=== PATIENT | female | born 1955 | race Caucasian/White ===

== ENCOUNTER → 2020-09-21 10:27 | Outpatient (CLI) | payer OTHER, SELFPAY ==
--- NOTE | ~2020-09-21 | DEXA_ITS ---
Bone Density Report Name: Patricia Dangelo Age: 65 Sex: Female Ethnicity: White Date of : 1955 Indication: osteopenia; hysterectomy; postmenopausal Referring Provider: MONICA, ARTIE Study: Bone densitometry was performed. Exam Date: September 21, 2020 Accession number: [id number] Bone Density: Region BMD T-score Z-score Classification AP Spine (L2, L3, L4) 0.886 -1.8 0.0 Osteopenia Femoral Neck (Left) 0.639 -1.9 -0.5 Osteopenia Total Hip (Left) 0.740 -1.7 -0.5 Osteopenia Femoral Neck (Right) 0.597 -2.3 -0.8 Osteopenia Total Hip (Right) 0.759 -1.5 -0.4 Osteopenia Total Hip Mean 0.750 -1.6 -0.5 Osteopenia World Health Organization criteria for BMD impression classify patients as: Normal (T-score at or above -1.0), Osteopenia (T-score between -1.0 and -2.5), or Osteoporosis (T-score at or below -2.5). 10-year Fracture Risk(1): Major Osteoporotic Fracture 11% Hip Fracture 1.9% Reported Risk Factors: [place] (), Neck BMD=0.597, BMI=26.3 (1) FRAX(R) Version 3.08. Fracture probability calculated for an untreated patient. Fracture probability may be lower if the patient has received treatment. Previous Exams: Region Exam Age BMD T-score BMD Change BMD Change Date g/cm2 vs Baseline vs Previous AP Spine(L2, L3, L4) 09/21/2020 65 0.886 -1.8 -0.178* -0.056* 07/07/2017 62 0.942 -1.2 -0.123* -0.085* 09/29/2014 59 1.027 -0.5 -0.038* -0.038* 04/03/2011 55 1.065 -0.1 Total Hip(Left) 09/21/2020 65 0.740 -1.7 -0.160* -0.034* 07/07/2017 62 0.774 -1.4 -0.126* -0.112* 09/29/2014 59 0.887 -0.5 -0.013 -0.013 04/03/2011 55 0.900 -0.3 Total Hip(Right) 09/21/2020 65 0.759 -1.5 -0.146* -0.013 07/07/2017 62 0.772 -1.4 -0.133* -0.132* 09/29/2014 59 0.904 -0.3 -0.001 -0.001 04/03/2011 55 0.905 -0.3 *Denotes significance at 95% confidence level, LSC for AP Spine = 0.022 g/cm2, LSC for Total Hip = 0.027 g/cm2 Clinical Information Provided by Patient: Has used the following medications: Vitamin D, Calcium Has the following medical conditions: Hysterectomy Patient maximum height was 62 Menopause Age: 53 No regular weight bearing exercise Drinks caffeinated beverages Onset of menses at age 16 Number of children 0 Impression: The alessia
== END ==
PROVIDERS: PCP Family Medicine; Visit Provider Nurse Practitioner
DX: M85.88 Other specified disorders of bone density and structure, other site (principal); M85.852 Other specified disorders of bone density and structure, left thigh; M85.851 Other specified disorders of bone density and structure, right thigh
CPT/HCPCS: 77080

== ENCOUNTER 2022-01-03 14:04 | Emergency (ER) | payer OTHER, SELFPAY ==
--- NOTE | ~2022-01-03 | XR_ITS ---
EXAMINATION: XR foot LT min 3V DATE: 01/03/2022 14:25 INDICATION: Left foot injury. TECHNIQUE: 4 views of left foot were obtained. COMPARISON: None. FINDINGS: There is mild hallux valgus. No fracture. There is mild osteoarthritis of first metatarsoph alangeal joint and fifth proximal interphalangeal joint. There are enthesophytes at the posterior and plantar aspects of calcaneal tuberosity. IMPRESSION: 1. Mild hallux valgus. 2. Mild polyarticular osteoarthritis. Reviewed, dictated and finalized at location B.
--- NOTE | ~2022-01-03 | XR_ITS ---
EXAMINATION: XR ankle LT min 3V DATE: 01/03/2022 14:36 INDICATION: Left ankle injury. TECHNIQUE: 4 views of left ankle were obtained. COMPARISON: None. FINDINGS: Bone alignment is normal. No fracture. There are tiny calcifications adjacent to medial mal leolus. Joint spaces are normal. There are enthesophytes at the posterior and plantar aspects of calc aneal tuberosity. IMPRESSION: 1. No fracture. Reviewed, dictated and finalized at location B. IMPRESSION: 1. No fracture.
[2022-01-03 14:10] VITALS: BP 117/60; PULSE 69; RESP 18; TEMP 37; O2SAT 100
--- NOTE | 2022-01-03 14:28 | ED.LOWEXIN ---
HPI - Extremity Injury (Lower) General Chief Complaint: Extremity Injury, Lower Stated Complaint: Lt Foot and Leg Pain Time Seen by Provider: 01/03/22 14:20 History of Present Illness HPI Narrative: Patricia Dangelo is a 66-year-old female who comes to [facility] with complaints of left foot and ankle discomfort the foot pain on the dorsal surfaces from dropped a shampoo bottle on her foot a couple days ago, rates ;pain as 6, she also stubbed her left fifth toe today and she has a nonpainful lump on the medial side of her ankle Patient has been wearing shoes but she works a job where she stands on her feet 8 or 9 hours a day Plan: x-ray foot and ankle Related Data Home Medications Medication Instructions Recorded Confirmed gabapentin 300 mg capsule 300 mg PO BID 09/05/19 01/03/22 zolpidem 10 mg tablet 10 mg PO HS 01/03/22 01/03/22 Allergies Allergy/AdvReac Type Severity Reaction Status Date / Time metronidazole Allergy Intermediate Rash Verified 01/03/22 14:17 Sulfa (Sulfonamide Allergy Intermediate Rash Verified 01/03/22 14:17 Antibiotics) Review of Systems Review of Systems: CONSTITUTIONAL: Denies fever, chills, sweats. EYES: Denies visual changes, redness, discharge. ENT: Denies rhinorrhea, congestion, sore throat, otalgia. CARDIOVASCULAR: Denies chest pain, palpitations, edema. RESPIRATORY: Denies dyspnea, wheezing, cough GASTROINTESTINAL: Denies abdominal pain, nausea, vomiting, diarrhea. GENITOURINARY: Denies dysuria, hematuria, abnormal discharge SKIN: Denies rash or itching. NEUROLOGIC: Denies numbness, or focal weakness. PSYCHIATRIC: Denies anxiety or depression. Left foot no swelling of foot R toe; non descript lump in the left medial side of ankle PMFSH Past Medical History Medical History BRCA gene positive Breast cancer H/O malignant neoplasm of breast Hypercalcemia Insomnia Mixed hyperlipidemia Vertigo Vitamin deficiency, unspecified Surgical History Surgical History H/O mastectomy (~2014) H/O: hysterectomy Family History Family History Other Family history of coronary artery disease Social History Social History Tobacco type: cigarettes Second hand tobacco smoke exposure: No Smoking end date: 07/20/14 Alcohol intake: current Drinks per week: 4 Substance use: never Substance use type: does not use Spiritual care concerns: No Comments At time of signature, I agree with nursing past medical, surgical, social and family history. There is no relevant family history pertinent to the presenting complaint. Exam Narrative: GENERAL: This is a well-nourished, well-developed patient, in mild distress. HEAD: normocephalic, atraumatic. EYES: Sclera clear/white. Vision is grossly intact. EARS: External ears normal. Hearing grossly intact. NOSE: External nose normal without nasal discharge, nares without redness, no rhinorrhea. THROAT: Mucous membranes moist, NECK: Neck supple, non-tender CARDIOVASCULAR: Regular rate and rhythm without murmurs, gallops, or rubs. RESPIRATORY: Clear to auscultation. Breath sounds equal bilaterally. No wheezes, rales, or rhonchi. GASTROINTESTINAL:not done SKIN: warm, intact with no suspicious lesions or rash, good texture and turgor. NEURO: awake, alert, and oriented to person, place and time. There were no obvious focal neurologic abnormalities. Steady gait EXTREMITIES: Normal range of motion. Identifies tenderness mid dorsal metatarsal, left fifth toe appears nondisplaced, soft lesio (?lipoma or varicose vein) L medial ankle- mild edema, no pitting BACK: Nontender without deformity Course Course Emergency Course: Patient comes with foot and ankle pain from dropping an shampoo bottle onto her left foot, left fifth toe francis
== END 2022-01-03 15:00 | disposition home or self-care (01) ==
PROVIDERS: Emergency Provider Nurse Practitioner; PCP Family Medicine
DX: S99.922A Unspecified injury of left foot, initial encounter (principal); X58.XXXA Exposure to other specified factors, initial encounter; M25.472 Effusion, left ankle; Z87.891 Personal history of nicotine dependence; E78.2 Mixed hyperlipidemia; Z85.3 Personal history of malignant neoplasm of breast; Z90.10 Acquired absence of unspecified breast and nipple
CPT/HCPCS: 73610; 73630; 99213; G0463

== ENCOUNTER 2022-02-13 10:47 | Emergency (ER) | payer OTHER, SELFPAY ==
[2022-02-13 10:57] VITALS: BP 122/89; PULSE 71; RESP 18; TEMP 36.8; O2SAT 100
--- NOTE | 2022-02-13 11:03 | ED.URI ---
HPI - URI/Sore Throat General Chief Complaint: Upper Respiratory Infection Stated Complaint: sorethroat,cough History of Present Illness HPI Narrative: Patricia Dangelo is a 66 yo female with a PMH of chronic pain, high cholesterol, sleep difficulties, who [facility] complaining of sore throat and cough since Thursday or Thursday. 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 She is afebrile here but states she feels subjectively warm no nausea vomiting or diarrhea Patient reported to nurse faint positive on home test for COVID last night Patient has had COVID vaccines Related Data Home Medications Medication Instructions Recorded Confirmed gabapentin 300 mg capsule 300 mg PO BID 09/05/19 02/13/22 zolpidem 10 mg tablet 10 mg PO HS 01/03/22 02/13/22 Allergies Allergy/AdvReac Type Severity Reaction Status Date / Time metronidazole Allergy Intermediate Rash Verified 02/13/22 11:17 Sulfa (Sulfonamide Allergy Intermediate Rash Verified 02/13/22 11:17 Antibiotics) Review of Systems Review of Systems: CONSTITUTIONAL: Subjective fever, chills, sweats. EYES: Denies visual changes, redness, discharge. ENT: Denies rhinorrhea, congestion, sore throat, otalgia. CARDIOVASCULAR: Denies chest pain, palpitations, edema. RESPIRATORY: Denies dyspnea, wheezing, dry cough GASTROINTESTINAL: Denies abdominal pain, nausea, vomiting, diarrhea. GENITOURINARY: Denies dysuria, hematuria, abnormal discharge SKIN: Denies rash or itching. NEUROLOGIC: Denies numbness, or focal weakness. PSYCHIATRIC: Denies anxiety or depression. [facility] Past Medical History Medical History BRCA gene positive Breast cancer H/O malignant neoplasm of breast Hypercalcemia Insomnia Mixed hyperlipidemia Neuropathy Vertigo Vitamin deficiency, unspecified Surgical History Surgical History H/O mastectomy (~2014) H/O: hysterectomy Family History Family History Other Family history of coronary artery disease Social History Social History Tobacco type: cigarettes Second hand tobacco smoke exposure: No Smoking end date: 07/20/14 Alcohol intake: current Drinks per week: 4 Substance use: never Substance use type: does not use Spiritual care concerns: No Comments At time of signature, I agree with nursing past medical, surgical, social and family history. There is no relevant family history pertinent to the presenting complaint. Exam Narrative: GENERAL: This is a well-nourished, well-developed patient, in mild distress. HEAD: normocephalic, atraumatic. EYES: Sclera clear/white. Vision is grossly intact. EARS: External ears normal, auditory canals clear and without drainage, fluid behind TMs . Hearing grossly intact. NOSE: External nose normal without nasal discharge, nares without redness, no rhinorrhea. THROAT: Mucous membranes moist, posterior pharynx erythema NECK: Neck supple, non-tender CARDIOVASCULAR: Regular rate and rhythm without murmurs, gallops, or rubs. RESPIRATORY: Clear to auscultation. Breath sounds equal bilaterally. No wheezes, rales, or rhonchi. GASTROINTESTINAL: Not done SKIN: warm, intact with no suspicious lesions or rash, good texture and turgor. NEURO: awake, alert, and oriented to person, place and time. There were no obvious focal neurologic abnormalities. Steady gait EXTREMITIES: Normal range of motion. BACK: Nontender without deformity Course Course Emergency Course: Patient's had sore throat since Thursday night or Thursday morning his subjective fever states not feeling well has dry cough patient has been vaccinated against COVID; reports faint positive test on home COVID test last night Strep test- negative COVID test-rapid negative, will send PCR- recommend Omar
[2022-02-13 19:46] LABS: SARS-CoV-2 RNA PCR Positive
== END 2022-02-13 11:53 | disposition home or self-care (01) ==
PROVIDERS: Emergency Provider Nurse Practitioner; PCP Family Medicine
DX: Z20.822 Contact with and (suspected) exposure to COVID-19 (principal); E78.2 Mixed hyperlipidemia; Z85.3 Personal history of malignant neoplasm of breast; Z90.10 Acquired absence of unspecified breast and nipple; Z86.73 Personal history of transient ischemic attack (TIA), and cerebral infarction without residual deficits; G62.9 Polyneuropathy, unspecified
CPT/HCPCS: 87081; 87426; 87880; 99213; C9803; G0463; U0003; U0005

== ENCOUNTER 2022-12-12 14:34 | Emergency (ER) | payer OTHER, SELFPAY ==
--- NOTE | ~2022-12-12 | XR_ITS ---
XR tibia fibula LT 2V 12/12/2022 15:16 INDICATION: Left tibia/fibular pain. Status post fall. PROCEDURE: 2 views left tibia/fibula COMPARISON: 01/03/2022 FINDINGS: Fracture, dislocation or subluxation is not identified. The soft tissues appear within norm al limits. No foreign bodies are identified. IMPRESSION: 1: NO ACUTE BONE OR JOINT ABNORMALITY IDENTIFIED. Reviewed, dictated and finalized at location B.
[2022-12-12 14:44] VITALS: BP 121/50; PULSE 62; RESP 16; TEMP 36.6; O2SAT 99
[2022-12-12 14:51] VITALS: BP 121/50; PULSE 62; RESP 16; TEMP 36.6; O2SAT 99
--- NOTE | 2022-12-12 15:09 | ED.LOWEXIN ---
HPI - Extremity Injury (Lower) General Chief Complaint: Extremity Injury, Lower Stated Complaint: fall injury to right knee and down leg Time Seen by Provider: 12/12/22 15:04 Source: patient and RN notes reviewed Mode of arrival: ambulatory Limitations: no limitations History of Present Illness HPI Narrative: Patient presents today complaining of pain and swelling to her left lower leg. Patient fell 4 days ago on her leg causing significant bruising. 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 She rates her pain 2/10 at rest, which increases with weight-bearing and movement. She has been applying ice with some relief. Patient has neuropathy in her lower legs and feet, but no worse numbness and tingling than baseline. Related Data Home Medications Medication Instructions Recorded Confirmed gabapentin 300 mg capsule 300 mg PO BID 09/05/19 12/12/22 meclizine 25 mg tablet (Dramamine 25 mg PO BID PRN Dizziness Or 11/28/22 12/12/22 (meclizine)) Vertigo Allergies Allergy/AdvReac Type Severity Reaction Status Date / Time metronidazole Allergy Intermediate Rash Verified 12/12/22 14:50 Sulfa (Sulfonamide Allergy Intermediate Rash Verified 12/12/22 14:50 Antibiotics) Review of Systems Review of Systems: CONSTITUTIONAL: Denies body aches, fever, chills, or sweats. EYES: Denies visual changes, redness, or discharge. ENT: Denies rhinorrhea, congestion, sore throat, or otalgia. CARDIOVASCULAR: Denies chest pain, palpitations, or edema. RESPIRATORY: Denies cough or dyspnea. GASTROINTESTINAL: Denies abdominal pain, nausea, vomiting, or diarrhea. GENITOURINARY: Denies dysuria or hematuria. SKIN: Denies rash, itching, or wounds. MUSCULOSKELETAL: + left leg pain and injury NEUROLOGIC: Denies headache, numbness, tingling, or weakness. PSYCH: Denies depression or anxiety. [facility] Past Medical History Medical History BRCA gene positive Breast cancer H/O malignant neoplasm of breast Hypercalcemia Insomnia Mixed hyperlipidemia Neuropathy Suspected 2019-nCoV infection Vertigo Vitamin deficiency, unspecified Surgical History Surgical History H/O mastectomy (~2014) H/O: hysterectomy Family History Family History Other Family history of coronary artery disease Social History Social History Smoking status: Former smoker Tobacco type: cigarettes Second hand tobacco smoke exposure: No Smoking end date: 07/20/14 Alcohol intake: current Drinks per week: 4 Substance use: never Substance use type: does not use Lack of Transportation: No Lack of Food: Never True Current Housing: I Have Housing Concerned About Future Housing: No Difficulty Paying Gas/Electric Bills: No Difficulty Paying for Meds: No Currently Unemployed: No Education: High School Diploma/GED Difficulty w/ Childcare or Family Care: No Living arrangements: with family Gender identity (if verbalized by the patient): Female Spiritual care concerns: No Agree to blood products: Yes Comments At time of signature, I have reviewed and agree with nursing past medical, surgical, social and family history unless otherwise noted. Please see nursing chart for further information. There is no relevant family history pertinent to the presenting complaint Exam Narrative: GENERAL: Well-appearing, well-nourished, and in no acute distress. HEAD: Normocephalic, atraumatic. EYES: EOMI. No redness or drainage. Conjunctivae normal. ENT: Mucous membranes pink and moist. NECK: Normal AROM. CHEST: No respiratory distress. EXTREMITIES: Left lower leg: Significant healing hematoma and ecchymosis to the amin, most significant to
== END 2022-12-12 15:33 | disposition home or self-care (01) ==
PROVIDERS: Emergency Provider Nurse Practitioner; PCP Family Medicine
DX: S80.12XA Contusion of left lower leg, initial encounter (principal); W19.XXXA Unspecified fall, initial encounter; E78.2 Mixed hyperlipidemia; Z85.3 Personal history of malignant neoplasm of breast; Z90.10 Acquired absence of unspecified breast and nipple; Z87.891 Personal history of nicotine dependence
CPT/HCPCS: 73590; 99213; G0463

== ENCOUNTER → 2023-03-06 10:15 | Outpatient (CLI) | payer OTHER, SELFPAY ==
--- NOTE | ~2023-03-06 | DEXA_ITS ---
Bone Density Report Name: FIGUEROA MOON Age: 67 Sex: Female Ethnicity: White Date of : 1955 Indication: osteopenia; hysterectomy; postmenopausal Referring Provider: MONICA, ARTIE Study: Bone densitometry was performed. Exam Date: March 06, 2023 Accession number: [id number] Bone Density: Region BMD T-score Z-score Classification AP Spine (L1-L4) 0.908 -1.3 0.6 Osteopenia Femoral Neck (Left) 0.690 -1.4 0.1 Osteopenia Total Hip (Left) 0.783 -1.3 0.0 Osteopenia Femoral Neck (Right) 0.627 -2.0 -0.4 Osteopenia Total Hip (Right) 0.810 -1.1 0.2 Osteopenia Total Hip Mean 0.797 -1.2 0.1 Osteopenia World Health Organization criteria for BMD impression classify patients as: Normal (T-score at or above -1.0), Osteopenia (T-score between -1.0 and -2.5), or Osteoporosis (T-score at or below -2.5). 10-year Fracture Risk(1): Major Osteoporotic Fracture 11% Hip Fracture 1.5% Reported Risk Factors: [place] (), Neck BMD=0.627, BMI=26.8 (1) FRAX(R) Version 3.08. Fracture probability calculated for an untreated patient. Fracture probability may be lower if the patient has received treatment. Previous Exams: Region Exam Age BMD T-score BMD Change BMD Change Date g/cm2 vs Baseline vs Previous AP Spine(L1-L4) 03/06/2023 67 0.908 -1.3 -0.137* -0.019 07/07/2017 62 0.928 -1.1 -0.117* -0.076* 09/29/2014 59 1.003 -0.4 -0.042* -0.042* 04/03/2011 55 1.045 0.0 Total Hip(Left) 03/06/2023 67 0.783 -1.3 -0.118* 0.042* 09/21/2020 65 0.740 -1.7 -0.160* -0.034* 07/07/2017 62 0.774 -1.4 -0.126* -0.112* 09/29/2014 59 0.887 -0.5 -0.013 -0.013 04/03/2011 55 0.900 -0.3 Total Hip(Right) 03/06/2023 67 0.810 -1.1 -0.095* 0.050* 09/21/2020 65 0.759 -1.5 -0.146* -0.013 07/07/2017 62 0.772 -1.4 -0.133* -0.132* 09/29/2014 59 0.904 -0.3 -0.001 -0.001 04/03/2011 55 0.905 -0.3 *Denotes significance at 95% confidence level, LSC for AP Spine = 0.022 g/cm2, LSC for Total Hip = 0.027 g/cm2 Clinical Information Provided by Patient: Has used the following medications: Vitamin D, Calcium Has the following medical conditions: Hysterectomy, Hx of left breast ca with bilateral mastectomy with chemo -2014 Patient maximum height was 62.0 Menopause Age: 53 No regular weight bearing
== END ==
PROVIDERS: PCP Family Medicine; Visit Provider Nurse Practitioner
DX: Z78.0 Asymptomatic menopausal state (principal); M85.88 Other specified disorders of bone density and structure, other site; M85.852 Other specified disorders of bone density and structure, left thigh; M85.851 Other specified disorders of bone density and structure, right thigh
CPT/HCPCS: 77080

== ENCOUNTER 2023-07-09 17:25 | Emergency (ER) | payer OTHER, SELFPAY ==
[2023-07-09 17:58] VITALS: BP 137/63; PULSE 86; RESP 18; TEMP 36.3; O2SAT 97
--- NOTE | 2023-07-09 17:58 | ED.URI ---
HPI - URI/Sore Throat General Stated Complaint: sorethroat,cough,congestion Time Seen by Provider: 07/09/23 18:00 Source: patient Mode of arrival: ambulatory Limitations: no limitations History of Present Illness HPI Narrative: Patricia is a 68-year-old female patient presenting to the clinic today with complaints of sore throat, cough, nasal congestion, headache, body aches, chills x4 days. She does not know how high her fever has been as she has not checked it but has felt feverish MD elicited complaint: sore throat and nasal congestion Related Data Home Medications Medication Instructions Recorded Confirmed gabapentin 300 mg capsule 300 mg PO BID 09/05/19 07/09/23 Allergies Allergy/AdvReac Type Severity Reaction Status Date / Time metronidazole Allergy Intermediate Rash Verified 07/09/23 18:10 Sulfa (Sulfonamide Allergy Intermediate Rash Verified 07/09/23 18:10 Antibiotics) Review of Systems Review of Systems: Pertinent positives per HPI. Patient denies any rash, headache, visual changes, dizziness, shortness of breath, chest pain, palpitations, nausea, vomiting, diarrhea, constipation, abdominal pain, or any urinary issues. [facility] Past Medical History Medical History BRCA gene positive Breast cancer H/O malignant neoplasm of breast Hypercalcemia Insomnia Mixed hyperlipidemia Neuropathy Suspected 2019-nCoV infection Vertigo Vitamin deficiency, unspecified Surgical History Surgical History H/O mastectomy (~2014) H/O: hysterectomy Family History Family History Other Family history of coronary artery disease Social History Social History Smoking status: Former smoker Tobacco type: cigarettes Second hand tobacco smoke exposure: No Smoking end date: 07/20/14 Alcohol intake: current Drinks per week: 4 Substance use: never Substance use type: does not use Lack of Transportation: No Lack of Food: Never True Current Housing: I Have Housing Concerned About Future Housing: No Difficulty Paying Gas/Electric Bills: No Difficulty Paying for Meds: No Currently Unemployed: No Education: High School Diploma/GED Difficulty w/ Childcare or Family Care: No Living arrangements: with family Gender identity (if verbalized by the patient): Female Spiritual care concerns: No Agree to blood products: Yes Comments At the time of my signature, I reviewed and agree with the nursing past medical, surgical, social, and family history. There is no relevant family history pertinent to the patient complaint. Exam Narrative: General: Well-developed, well nourished, in no apparent distress Head: Normocephalic, atraumatic Eyes: Pupils equally round and reactive to light bilaterally, EOM intact, sclera and conjunctive clear, no discharge, lids normal Ears: TMs intact and congested, ear canals clear, no drainage, grossly hearing normal. Nose: Nares patent, clear nasal discharge, no inflammation, no sinus tenderness. Mouth: Oropharynx red without lesions or masses, good dentition, MMM. Neck: Supple, trachea midline, no enlargement of anterior or posterior cervical nodes, no thyroid masses or goiter palpable. Cardio: Regular rate and rhythm, s1 and s2 normal, no murmur appreciated. Resp: Clear to auscultation bilaterally anteriorly and posteriorly, no rhonchi, rales, wheezing or rubs Course Course Emergency Course: Portions of this record may have been created with voice recognition software. Level of Care: Express Care Visit Vital Signs Vital signs: Vital signs reviewed MDM - URI/Sore Throat MDM Narrative Medical decision making narrative: At the time of visit patient is resting comfortably on the exam table. Patient vivian
== END 2023-07-09 18:23 | disposition home or self-care (01) ==
PROVIDERS: Emergency Provider Nurse Practitioner Family; PCP Family Medicine
DX: B34.9 Viral infection, unspecified (principal); J06.9 Acute upper respiratory infection, unspecified; J02.9 Acute pharyngitis, unspecified; E78.2 Mixed hyperlipidemia; Z79.899 Other long term (current) drug therapy; Z85.3 Personal history of malignant neoplasm of breast; Z87.891 Personal history of nicotine dependence; Z20.822 Contact with and (suspected) exposure to COVID-19
CPT/HCPCS: 87081; 87426; 87804; 87880; 99213; C9803; G0463

== ENCOUNTER 2023-08-06 18:07 | Emergency (ER) | payer OTHER, SELFPAY ==
[2023-08-06 18:15] VITALS: BP 115/62; PULSE 63; RESP 18; TEMP 36.3; O2SAT 99
--- NOTE | 2023-08-06 18:23 | ED.DIZZY ---
HPI - Dizziness General Chief Complaint: Dizziness Stated Complaint: Dizzy, Nausea, Not Eating Time Seen by Provider: 08/06/23 18:08 Source: patient Mode of arrival: ambulatory Limitations: no limitations History of Present Illness HPI Narrative: Patient is a 68-year-old female who presents with sudden onset of dizziness and nausea today while working. Patient states dizziness has worsened throughout the day. Denies being related to movement or change in position. Patient is already on meclizine for vertigo after chemo in 2019. Patient denies any numbness, tingling, weakness to extremities or changes in vision. Patient denies any upper respiratory symptoms, fever, chills, vomiting or diarrhea. Related Data Home Medications Medication Instructions Recorded Confirmed gabapentin 300 mg capsule 300 mg PO BID 09/05/19 07/09/23 clobetasol 0.05 % topical cream topical 08/06/23 meclizine 12.5 mg tablet mg 08/06/23 Allergies Allergy/AdvReac Type Severity Reaction Status Date / Time metronidazole Allergy Intermediate Rash Verified 07/09/23 18:10 Sulfa (Sulfonamide Allergy Intermediate Rash Verified 07/09/23 18:10 Antibiotics) Review of Systems Review of Systems: All systems reviewed & are unremarkable except as noted in HPI and below Constitutional: Constitutional: Denies body ache(s), Denies chills, Denies fatigue, Denies fever(s), Denies headache(s), Denies malaise and Denies weakness Eyes: Eyes: Denies blurry vision, Denies irritation and Denies loss of vision ENT: Denies otalgia, Denies headache(s), Denies nasal discharge, Denies sinus pain and Denies sore throat Cardiovascular: Cardiovascular: Denies chest pain, Denies irregular heart rhythm and Denies dyspnea Respiratory: Respiratory: Denies dyspnea Gastrointestinal: Gastrointestinal: Denies abdominal pain, Denies melena, Denies hematochezia, Denies diarrhea, Reports nausea and Denies vomiting Musculoskeletal: Musculoskeletal: Denies back pain, Denies myalgias and Denies arthralgias Integumentary/Breasts: Skin/Breast: Denies pruritus and Denies rash Neurologic: Reports dizziness, Denies headache(s), Denies loss of vision and Denies weakness Psychiatric: Psychiatric: Reports no additional psychiatric complaints Endocrine: Endocrine: Denies fatigue PMFSH Past Medical History Medical History BRCA gene positive Breast cancer H/O malignant neoplasm of breast Hypercalcemia Insomnia Mixed hyperlipidemia Neuropathy Suspected 2019-nCoV infection Vertigo Vitamin deficiency, unspecified Surgical History Surgical History H/O mastectomy (~2015) H/O: hysterectomy Family History Family History Other Family history of coronary artery disease Social History Social History Smoking status: Former smoker Tobacco type: cigarettes Second hand tobacco smoke exposure: No Smoking end date: 07/20/14 Alcohol intake: current Drinks per week: 4 Substance use: never Substance use type: does not use Lack of Transportation: No Lack of Food: Never True Current Housing: I Have Housing Concerned About Future Housing: No Difficulty Paying Gas/Electric Bills: No Difficulty Paying for Meds: No Currently Unemployed: No Education: High School Diploma/GED Difficulty w/ Childcare or Family Care: No Living arrangements: with family Gender identity (if verbalized by the patient): Female Spiritual care concerns: No Agree to blood products: Yes Comments At time of signature, agree with nursing past medical, surgical, social and family history. There is no relevant family history pertinent to the presenting complaint. Exam Const: General: cooperative, healthy appearing, comfortable, no acute distress and well no
== END 2023-08-06 18:40 | disposition short-term general hospital (02) ==
LOC: EXPTROY 18:11
PROVIDERS: Emergency Provider Nurse Practitioner Family; PCP Family Medicine
DX: R42 Dizziness and giddiness (principal); Z87.891 Personal history of nicotine dependence; E78.2 Mixed hyperlipidemia; Z85.3 Personal history of malignant neoplasm of breast; Z90.10 Acquired absence of unspecified breast and nipple
CPT/HCPCS: 99213; G0463

== ENCOUNTER 2024-12-24 13:42 | Emergency (ER) | payer OTHER, SELFPAY ==
--- OUTSIDE RECORDS SUMMARY | 2024-12-24 13:44 | XMS_ITS | Encounter Summary ---
Author Organization [facility] Address [address] [place] [address] Phone Care Team Providers Care Water Taxi Driver Name Role Phone Aylin Perdomo MD Primary Care Provider [phone] Kirti Diaz NP Unavailable Parveen Jain MD Unavailable [phone] Tim Maldonado MD Unavailable Diogenes Cote MD Unavailable Encounter Details Date Type Department Care Team (Latest Contact Info) Description 01/21/2019 Orders Only [facility] Scanning, Provider Social History Tobacco Use Types Packs/Day Years Used Date Smoking Tobacco: Former Cigarettes 1 43.4 0 07/20/1971 - 12/06/2014 Smokeless Tobacco: Never Alcohol Use Standard Drinks/Week Comments Yes 0 (1 standard drink = 0.6 oz pur e alcohol) rarely Comments Unknown Sex and Gender Information Value Date Recorded Sex Assigned at Not on file 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 Gender Identity Not on file Sexual Orientation Not on file documented as of this encounter Plan of Treatment Not on file documented as of this encounter Procedures Procedure Name Priority Date/Time Associated Diagnosis Comments SCAN - LABS 01/21/2019 documented in this encounter Results * SCAN - LABS (01/21/2019) us Provider Scanning Final Result documented in this encounter Visit Diagnoses Not on filedocumented in this encounter Care Teams Water Taxi Driver Relationship Specialty Start Date End Date Aylin Perdomo MD PCP - General 09/05/16 Kirti Diaz NP Nurse Practitioner Medical Oncology 01/21/18 Parveen Jain MD [address] [place] [address] Referring Physician Plastic Surgery 01/21/18 Tim Maldonado MD [address] [place] [address] Consulting Physician Gynecologic Oncology 01/21/18 Diogenes Cote MD [address] [place] [address] Referring Physician Gastroenterology 01/22/18 documented as of this encounter
--- OUTSIDE RECORDS SUMMARY | 2024-12-24 13:44 | XMS_ITS | Referral Summary ---
Author Organization [facility] Address [address] [place] [address] Care Team Providers Care Process Mold Technician Name Role Phone Aylin Perdomo MD Primary Care Provider [phone] Kirti Diaz NP Unavailable [phone] Parveen Jain MD Unavailable [phone] Tim Maldonado MD Unavailable Diogenes Cote MD Unavailable Allergies Active Allergy Reactions Criticality Noted Date Comments Metronidazole Rash,Swelling Medium Sulfa (Sulfonamide Antibiotics) Rash Medium Medications simvastatin (ZOCOR) 40 mg tablet 12/04/2017 Active zolpidem (AMBIEN) 10 mg tabletIndicatio ns:Sleep-Onset Insomnia Take 1 tablet (10 mg total) by mouth nightly as needed for sleep Active polyethylene glycol (MIRALAX) 17 gram packet Take 1 packet (17 g total) by mouth daily Active clotrimazole-be tamethasone (LOTRISONE) cream 06/29/2018 Active clobetasol 0.025 % cream 06/23/2017 Activ e calcium carbonate/vitam in D3 (CALCIUM 500 + D ORAL) Take by mouth Active meclizine (ANTIVERT) 12.5 mg tablet Take 1 tablet (12.5 mg total) by mouth daily Active gabapentin (NEURONTIN) 600 mg tablet Take 1 tablet (600 mg total) by mouth 3 (three) times a day 135 tablet 3 09/12/2022 Active Active Problems Problem Noted Date Diagnosed Date Family history of pancreatic cancer 08/03/2020 Overview (08/03/2020): Added automatically from request for surgery [id number] Balance problem 02/04/2019 Smoking greater than 40 pack years 07/23/2018 Pulmonary nodules 06/05/2016 Overview (01/21/2018): 3 mm node in LLL in subpleural location. 03-16-2017 - imaging unchanged, subsequent imaging recommended. Assessment & Plan (07/23/2018 4:26 PM STAMP CLASSIFIER): CT 01/22/2018 with stable (3 mm) subpleural LLL nodule. Will enroll with lung screening program due to prior smoking history and will arrange for low dose CT scan in 6 months. Drug-induced polyneuropathy 07/03/2015 Assessment & Plan (07/22/2018 4:16 PM STAMP CLASSIFIER): On Neurontin: discussed increasing dose to 300 mg PO BID (currently taking 300 mg in AM) but she wants to hold off for now. S/P breast reconstruction 12/22/2014 Overview (07/22/2018): Bilateral nipple sparing mastectomies, with delayed wound healing on the right side at the inframammary fold incision. Reconstruction was salvaged with thoracodorsal artery accountant assistant flap. Assessment & Plan (07/22/2018 4:15 PM STAMP CLASSIFIER): Saw Dr. Jain 05/31/2018 BRCA2 gene mutation positive 11/09/2014 Overview (07/22/2018): BRCA2 mutation [id number] Assessment & Plan (07/22/2018 4:06 PM STAMP CLASSIFIER): s/p TAHBSO and followed by Dr. Cote from GI for monitoring for pancreatic cancer. MRI 04/26/2018 with normal impression. History of left breast cancer 11/03/2014 Assessment & Plan (07/22/2018 4:13 PM STAMP CLASSIFIER): Left sided invasive ductal carcinoma, [id number], stage IIA, triple negative, s/p left mastectomy and right prophylatic mastectomy followed by adjuvant AC followed by T, now on monitoring. She is doing well with no signs of recurrence. We reviewed exercise and nutrition recommendations. Resolved Problems Problem Noted Date Diagnosed Date Resolved Date History of colon polyps 05/08/202208/20 Overview (05/08/2022): Added automatically from request for surgery [id number] Immunizations Immunization Administration Dates Next Due ZOSTER Recombinant 01/08/2018,10/16/2017 Social History Tobacco Use Types Packs/Day Years Used Date Smoking Tobacco: Former Cigarettes 1 43.4 0 07/20/1971 - 12/06/2014 Smokeless Tobacco: Never Tobacco Cessation:Counseling Given: Yes Alcohol Use Standard Drinks/Week Comments Yes 0 (1 standard drink = 0.6 oz pur e alcohol) rarely AUDIT-C Answer Date Recorded Q1: How often do you have a drink containing alc ohol? 2-3 times a week 05/26/2024 Q2: How many drinks containi ng alcohol do you have on a typical day when you are drinking? 1 or 2 05/26/2024 Q3: How often do you have si x or more drinks on one occasion? Never 05/26/2024 Personal Safety Answer Date Recorded Have you ever been in or are you currently in a harmful physical or emotional relationship or is someone making you feel afraid or unsafe? 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 Gender Identity Not on file Sexual Orientation Not on file Last Filed Vital Signs Vital Sign Reading Time Taken Comments Blood Pressure 126/68 05/26/2024 11:50 AM STAMP CLASSIFIER Pulse 67 05/26/2024 11:50 AM STAMP CLASSIFIER Temperature 36.1 C (97 F) 05/26/2024 11:25 AM STAMP CLASSIFIER Respiratory Rate 22 05/26/2024 11:55 AM STAMP CLASSIFIER Oxygen Saturation 99% 05/26/2024 11:50 AM STAMP CLASSIFIER Inhaled Oxygen Concentration - - Weight 63.5 kg (140 lb) 05/26/2024 10:24 AM STAMP CLASSIFIER Height 157.5 cm (5' 2) 05/26/2024 10:24 AM STAMP CLASSIFIER Body Mass Index 25.61 05/26/2024 10:24 AM STAMP CLASSIFIER Plan of Treatment Not on file Procedures Procedure Name Priority Date/Time Associated Diagnosis Comments CT CHEST WO CONTRAST F/U LUNG SCREEN PROTOCOL Schedule Routine, Read Routine (OP Routine) 01/18/2024 10:04 AM CDT Pulmonary nodule COLONOSCOPY 08/07/2022 7:54 AM STAMP CLASSIFIER from Last 3 Months or Most Recently Relevant to Health Maintenance Results * CT Chest WO Contrast F/U Lung Screen Protocol (01/18/2024 10:04 AM CDT) Anatomical Region Laterality Modality Chest N/A Computed Tomogra phy 01/18/2024 11:0 3 AM CDT Impressions 01/18/2024 11:05 AM CDT LungRADS Category 2 (benign). Recommend Low dose Screening CT of chest in 12 months. LungRADS Categories: 1 - Negative (no nodules, or only benign calcified or fat-containing nodules) 2 - Benign Appearance or Behavior (nodules with very low likelihood of becoming a clinically active cancer due to size or lack of growth) 3 - Probably Benign (probably benign findings-short term follow up suggested; includes nodules with a low likelihood of becoming a clinically active cancer) 4A,4B,4X - Suspicious (category 3 or 4 nodules with findings for which additional diagnostic testing and/or tissue sampling is recommended) S - Other (clinically significant or potentially clinically significant findings (non-lung cancer) C - Prior Lung Cancer (modifier for patients with a prior diagnosis of lung cancer who return to screening) Dictated by: Khadar Colbert M.D. The radiology attending physician has personally reviewed this study, and had reviewed and/or edited this written report and agrees with it. Electronically signed by: Shiva Goetz M.D. Narrative 01/18/2024 11:05 AM CDT EXAMINATION: Lung cancer screening CT of the Chest without intravenous contrast HISTORY: Lung Cancer Screening TECHNIQUE: Low radiation dose chest protocol. No intravenous contrast. Reconstructed slice width 1.[address] Dose Index 0.73 mGy. Dose-length product 29 mGy-cm. COMPARISON: 01/19/[address] of the chest without IV contrast FINDINGS: Lung nodules or findings of lung cancer: Right middle lobe nodule measuring 4 mm without change at 203.6. Smoking related lung disease: Mild apical centrilobular emphysema Other findings: None Procedure Note Shiva Goetz MD - 01/18/2024 EXAMINATION: Lung cancer screening CT of the Chest without intravenous contrast HISTORY: Lung Cancer Screening TECHNIQUE: Low radiation dose chest protocol. No intravenous contrast. Reconstructed slice width 1.[address] Dose Index 0.73 mGy. Dose-length product 29 mGy-cm. COMPARISON: 01/19/[address] of the chest without IV contrast FINDINGS: Lung nodules or findings of lung cancer: Right middle lobe nodule measuring 4 mm without change at 203.6. Smoking related lung disease: Mild apical centrilobular emphysema Other findings: None IMPRESSION: LungRADS Category 2 (benign). Recommend Low dose Screening CT of chest in 12 months. LungRADS Categories: 1 - Negative (no nodules, or only benign calcified or fat-containing nodules) 2 - Benign Appearance or Behavior (nodules with very low likelihood of becoming a clinically active cancer due to size or lack of growth) 3 - Probably Benign (probably benign findings-short term follow up suggested; includes nodules with a low likelihood of becoming a clinically active cancer) 4A,4B,4X - Suspicious (category 3 or 4 nodules with findings for which additional diagnostic testing and/or tissue sampling is recommended) S - Other (clinically significant or potentially clinically significant findings (non-lung cancer) C - Prior Lung Cancer (modifier for patients with a prior diagnosis of lung cancer who return to screening) Dictated by: Khadar Colbert M.D. The radiology attending physician has personally reviewed this study, and had reviewed and/or edited this written report and agrees with it. Electronically signed by: Shiva Goetz M.D. Renea Victor NP IMG CT PROCEDURES Final Result * COLONOSCOPY (08/07/2022 7:54 AM STAMP CLASSIFIER) Anatomical Region Laterality Modality Other Narrative Procedure Note Diogenes Cote MD - 08/07/2022 7:54 AM CST ENDOSCOPY LAB Patient Name: Patricia Dangelo Procedure Date: 08/07/2022 7:54 AM Date of : 1955 Admit Type: Outpatient Age: 67 Gender: Female Attending MD: Diogenes Cote M.D. Room: [facility] 04 Note Status: Finalized Procedure: Colonoscopy Indications: Surveillance: Personal history of adenomatouspolyps on last colonoscopy > 5 years ago Providers: Diogenes Cote M.D. Referring MD: Aylin Perdomo M.D. Medicines: Monitored Anesthesia Care Complications: No immediate complications. Estimated blood loss:None. Estimated Blood Loss: Estimated blood loss: none. Procedure: Pre-Anesthesia Assessment: - The risks and benefits of the procedure and the sedation options and risks were discussed with the patient. All questions were answered and informed consent was obtained. - Immediately prior to administration ofmedications, the patient was re-assessed for adequacy to receive sedatives. - The anesthesia plan was to use monitoredanesthesia care (MAC). The benefits, risks and alternatives of theprocedure and sedation were discussed and informed consentwas obtained. All questions were answered. Please referto the signed informed consent document in the medical record. The scope was passed under direct vision.The [id number] was introduced through the anusand advanced to the cecum, identified by appendiceal orifice and ileocecal valve. The colonoscopy was performed without difficulty. The patient tolerated the procedure well. The quality of the bowel preparation was evaluated using the BBPS (BostonBowel Preparation Scale) with scores of: Right Colon = 3 (entire mucosa seen well with no residual staining, small fragments of stool or opaque liquid),Transverse Colon = 3 (entire mucosa seen well with no residual staining, small fragments of stool or opaqueliquid) and Left Colon = 2 (minor amount of residualstaining, small fragments of stool and/or opaque liquid, but mucosa seen well). The total BBPS score equals 8.The quality of the bowel preparation was good. Findings: The perianal and digital rectal examinations were normal. The colon (entire examined portion) appeared normal. Multiple small and large-mouthed diverticula were found in thesigmoid colon. The rectum was shallow and did not allow for retroflexion on several attempts. The anal verge and rectum were examined en fosseveral times. Impression: - The entire examined colon is normal. - Diverticulosis in the sigmoid colon. Recommendation: - Observe patient's clinical course followingtoday's Colonoscopy. - Repeat colonoscopy in 7-10 years. Patient will require a 2 day bowel prep. - Resume home medications and diet. - Return to primary care physician as previously scheduled. - In the unusual situation that you developabdominal pain, bleeding or other significant problems in the days following this procedure please call my officeat [phone] to speak to my nurses. After hours and evenings please call [phone] andspeak to the GI fellow radiologic electronic specialist. Please tell them that Dr. Cote did your procedure and that your wereinstructed to have the fellow call me or the physiciancovering for me to discuss the management of your condition.If you have an urgent problem, [facility] and have the ER doctor call fiona during the day or the GI Fellow after hours and weekends to arrange admission or transfer to our facility. Attending Participation: I personally performed the entire procedure. Electronically Signed By: Diogenes Cote M.D. Diogenes Cote M.D. 08/07/2022 8:30:19 AM Number of Addenda: 0 Note Initiated On: 08/07/2022 7:54 AM Diogenes Cote MD ENDOSCOPY PROCEDURES Final Result from Last 3 Months or Most Recently Relevant to Health Maintenance Insurance [facility] Address: [address] [address] [place] [address] [facility] [facility] H[facility]/PPO Address: [address] [address] [place] [address] [facility]/PPO Address: [address] [address] [place] [address] [facility] MEDIC[facility] Advance Directives For more information, please contact: [phone] * Full Code (Latest Code Status on File) Date Activated Date Inactivated Comments 05/26/2024 10:20 AM 05/26/2024 4:03 PM * Full Code Date Activated Date Inactivated Comments 08/07/2022 6:57 AM 08/07/2022 1:18 PM * Full Code Date Activated Date Inactivated Comments 06/05/2022 8:04 AM 06/05/2022 3:23 PM * Full Code Date Activated Date Inactivated Comments 08/31/2020 7:56 AM 08/31/2020 3:20 PM Care Teams Process Mold Technician Relationship Specialty Start Date End Date Aylin Perdomo MD PCP - General 09/05/16 Kirti Diaz, PAUL Nurse Practitioner Medical Oncology 01/21/18 Parveen Jain MD [address] [place] [address] Referring Physician Plastic Surgery 01/21/18 Tim Maldonado MD [address] [place] [address] Consulting Physician Gynecologic Oncology 01/21/18 Diogenes Cote MD [address] [place] [address] Referring Physician Gastroenterology 01/22/18
--- OUTSIDE RECORDS SUMMARY | 2024-12-24 13:44 | XMS_ITS | Clinical Summary ---
Author Organization [facility] Address [address] [place] [address] Care Team Providers Care Private Branch Exchange Service Adviser Name Role Phone Aylin Perdomo MD Primary Care Provider [phone] Kirti Diaz NP Unavailable Parveen Jain MD Unavailable [phone] Tim Maldonado MD Unavailable Diogenes Cote MD [...] (08/03/2020): Added automatically from request for surgery [id number] Balance problem 02/04/2019 Smoking greater than 40 pack years 07/23/2018 Pulmonary nodules 06/05/2016 Overview (01/21/2018): 3 mm node in LLL in subpleural location. 03-16-2017 - imaging unchanged, subsequent imaging recommended. Assessment & Plan (07/23/2018 4:26 PM COOLER ROOM WORKER): CT 01/22/2018 with stable (3 mm) subpleural LLL nodule. Will enroll with lung screening program due to prior smoking history and will arrange for low dose CT scan in 6 months. Drug-induced polyneuropathy 07/03/2015 Assessment & Plan (07/22/2018 4:16 PM COOLER ROOM WORKER): On Neurontin: discussed increasing dose to 300 mg PO BID (currently taking 300 mg in AM) but she wants to hold off for now. S/P breast reconstruction 12/22/2014 Overview (07/22/2018): Bilateral nipple sparing mastectomies, with delayed wound healing on the right side at the inframammary fold incision. Reconstruction was salvaged with thoracodorsal artery recreation coordinator flap. Assessment & Plan (07/22/2018 4:15 PM COOLER ROOM WORKER): Saw Dr. Jain 05/31/2018 BRCA2 gene mutation positive 11/09/2014 Overview (07/22/2018): BRCA2 mutation 2041A Assessment & Plan (07/22/2018 4:06 PM COOLER ROOM WORKER): s/p TAHBSO and followed by Dr. Cote from GI for monitoring for pancreatic cancer. MRI 04/26/2018 with normal impression. History of left breast cancer 11/03/2014 Assessment & Plan (07/22/2018 4:13 PM COOLER ROOM WORKER): Left sided invasive ductal carcinoma, [id number], stage IIA, triple negative, s/p left mastectomy and right prophylatic mastectomy followed by adjuvant AC followed by T, now on monitoring. She is doing well with no signs of recurrence. We reviewed exercise and nutrition recommendations. Resolved Problems Problem Noted Date Diagnosed Date Resolved Date History of colon polyps 05/08/202208/20 Overview (05/08/2022): Added automatically from request for surgery [id number] Immunizations Immunization Administration Dates Next Due ZOSTER Recombinant 01/08/2018,10/16/2017 Surgical History Surgery Date Site/Laterality Comments PORT REMOVAL 06/19/2015 N/A US UNLISTED PROCEDURE LYMPH SYSTEM 12/14/2014 N/A HYSTERECTOMY W/ BILATERAL SALPINGOOPHORECTOMY 02/01/2016 COLON POLYPECTOMY 03/20/2017 BREAST RECONSTRUCTION 07/20/2014 - 07/19/2015 Bilateral MASTECTOMY 07/20/2014 - 07/19/2015 Bilateral SKIN CANCER EXCISION COLONOSCOPY 08/07/2022 Medical History Medical History Date Comments Hyperlipidemia Breast cancer, left (HCC) 2014 s/p ch emotherapy Skin cancer History of colon polyps 05/08/2022 Added au tomatically from request for surgery [id number] Lung nodule Family History Medical History Relation Name Comments Car Accident Father Heart attack Father Hyperlipidemia Father Family histor y of hypercholesterolemia - (Added by TW Conv) Heart attack Father's Brother Family hist ory of myocardial infarction - (Added by TW Conv) Skin cancer Maternal Grandfather fr om skin cancer Emphysema Maternal Grandmother Car Accident Mother at age 33 years Lung cancer Mother's Brother smoker Cancer Mother's Sister CHIEF BANK EXAMINER cancer a nd smoker Stroke Paternal Grandmother No Known Problems Sister Relation Name Status Comments Father Father's Brother Maternal Grandfather Maternal Grandmother Mother Mother's Brother Mother's Sister Paternal Grandfather Paternal Grandmother Sister Alive Social History Tobacco Use Types Packs/Day Years [...] on file Legal Sex Female 9:07 PM COOLER ROOM WORKER Gender Identity Not on file Sexual Orientation Not on file Obstetrics History Last Filed Vital Signs Vital Sign Reading Time Taken Comments Blood Pressure 126/68 05/26/2024 11:50 AM COOLER ROOM WORKER Pulse 67 05/26/2024 11:50 AM COOLER ROOM WORKER Temperature 36.1 C (97 F) 05/26/2024 11:25 AM COOLER ROOM WORKER Respiratory Rate 22 05/26/2024 11:55 AM COOLER ROOM WORKER Oxygen Saturation 99% 05/26/2024 11:50 AM COOLER ROOM WORKER Inhaled Oxygen Concentration - - Weight 63.5 kg (140 lb) 05/26/2024 10:24 AM COOLER ROOM WORKER Height 157.5 cm (5' 2) 05/26/2024 10:24 AM COOLER ROOM WORKER Body Mass Index 25.61 05/26/2024 10:24 AM COOLER ROOM WORKER Plan of Treatment Health Maintenance Due Date Last Done Comments Breast Cancer Screening-Mammogram 1955 Depression Screening 1955 Hepatitis C Screening 1955 Osteoporosis Screening-Bone Density Scan 1955 DTaP/Tdap/Td Vaccine (1 - Tdap) 1968 Hepatitis B Screening 1975 Pneumococcal vaccine 65+ (1 of 2 - PCV) 1976 Well Visit 65+ 2022 Covid-19 Vaccine (4 - 2023-2 5 season) 2024 06/06/2021, 10/01/2020, 09/02/2020 Lung Cancer Screening 01/18/2025 01/18/2024 , 01/19/2023, 12/06/2021, Additional history exists Influenza Vaccine (Season Ended) 2025 Fall Risk Assessment 05/26/2025 05/26/2024 Colon Cancer Screening-Colonoscopy 08/07/2032 08/07/2022, 06/05/2022, 03/20/2017 Zoster Vaccine Completed 01/08/2018, 10/16/2017 Colon Cancer Screening-CT Colonography Discontinued 08/07/2022, 06/05/2022, 03/20/2017 Colon Cancer Screening-DNA Stool Discontinued 08/07/2022, 06/05/2022, 03/20/2017 Colon Cancer Screening-FIT Discontinued 08/07, 06/05/2022, 03/20/2017 Colon Cancer Screening-Sigmoidoscopy Discontinued 08/07/2022, 06/05/2022, 03/20/2017 Procedures Procedure Name Priority Date/Time Associated Diagnosis Comments CT CHEST WO CONTRAST F/U LUNG SCREEN PROTOCOL Schedule Routine, Read Routine (OP Routine) 01/18/2024 10:04 AM CDT Pulmonary nodule COLONOSCOPY 08/07/2022 7:54 AM COOLER ROOM WORKER from Last 3 Months or Most Recently [...] who return to screening) Dictated by: Khadar Naveh-Fred, M.D. The radiology attending physician has personally [...] it. Electronically signed by: Shiva Goetz M.D. us Reneajaspal Victor FINANCE ATTORNEY IMG CT PROCEDURES Final Result * COLONOSCOPY (08/07/2022 7:54 AM COOLER ROOM WORKER) Anatomical Region Laterality Modality Other Narrative Procedure Note Diogenes Cote MD - 08/07/2022 7:54 AM CST ENDOSCOPY LAB Patient Name: Patricia Dangelo Procedure Date: 08/07/2022 7:54 AM Date of : 1955 Admit Type: Outpatient Age: 67 Gender: Female Attending MD: Diogenes Cote M.D. Room: [facility] ENDOSCOPY ROOM 04 Note Status: Finalized Procedure: [...] The scope was passed under direct vision.The [id number] was introduced through the anusand advanced to [...] following this procedure please call my officeat [phone] to speak to my nurses. After hours and evenings please call [phone] andspeak to the GI fellow logistics solution manager. Please tell them that Dr. Cote did your procedure and that your wereinstructed to have the fellow call me or the physiciancovering for me to discuss the management of your condition.If you have an urgent problem, [facility] and have the ER doctor call laithffice during the day or the GI Fellow [...] Most Recently Relevant to Health Maintenance Insurance [facility] CHOICE PLUS [address] [place] [address] [facility] [place] [id number] MEDICARE Advance Directives For more information, please contact: [phone] * Full Code (Latest Code Status on File) Date Activated Date Inactivated Comments 05/26/2024 10:20 AM 05/26/2024 4:03 PM * Full Code Date Activated Date Inactivated Comments 08/07/2022 6:57 AM 08/07/2022 1:18 PM * Full Code Date Activated Date Inactivated Comments 06/05/2022 8:04 AM 06/05/2022 3:23 PM * Full Code Date Activated Date Inactivated Comments 08/31/2020 7:56 AM 08/31/2020 3:20 PM Care Teams Private Branch Exchange Service Adviser Relationship Specialty Start Date End Date Aylin Perdomo MD PCP - General 09/05/16 Kirti Diaz NP Nurse Practitioner Medical Oncology 01/21/18 Parveen Jain MD [address] [place] [address] Referring Physician Plastic Surgery 01/21/18 Tim Maldonado MD [address] [place] [address] Consulting Physician Gynecologic Oncology 01/21/18 Diogenes Cote MD [address] [place] [address] Referring Physician Gastroenterology 01/22/18
--- NOTE | 2024-12-24 13:47 | ED.GENADULT ---
HPI - General Adult General Chief complaint: Upper Respiratory Infection Stated complaint: sore throat Time Seen by Provider: 12/24/24 13:47 Source: patient Mode of arrival: ambulatory Limitations: no limitations History of Present Illness HPI narrative: 69-year-old female patient presents to the [facility] with complaints of sore throat for the past 5 days. Denies fevers body aches or chills. Denies any ear pain or coughing. Denies chest pain or shortness of breath. Denies abdominal pain, nausea, vomiting or diarrhea. Denies taking anything for the pain. Related Data Home Medications ?Medication ?Instructions ?Recorded ?Confirmed ?Last Taken ?Type clobetasol 0.05 % topical cream topical 08/06/23 06/27/24 Unknown History meclizine 12.5 mg tablet mg 08/06/23 06/27/24 Unknown History Allergies Allergy/AdvReac Type Severity Reaction Status Date / Time metronidazole Allergy Intermediate Rash Verified 12/24/24 13:49 Sulfa (Sulfonamide Allergy Intermediate Rash Verified 12/24/24 13:49 Antibiotics) Review of Systems Review of Systems: CONSTITUTIONAL: Denies fever, chills, or sweats. EYES: Denies visual changes, redness, or discharge. ENT: Denies rhinorrhea, congestion, Positive sore throat, denies otalgia. CARDIOVASCULAR: Denies chest pain, palpitations, or edema. RESPIRATORY: Denies cough or dyspnea. GASTROINTESTINAL: Denies abdominal pain, nausea, vomiting, or diarrhea. GENITOURINARY: Denies dysuria or hematuria. SKIN: Denies rash or itching. MUSCULOSKELETAL: Denies back pain, joint pain, or myalgia. NEUROLOGIC: Denies headache, numbness, or weakness. PSYCHIATRIC: Denies anxiety or depression. [facility] Past Medical History Medical History Suspected 2019-nCoV infection Neuropathy Vertigo BRCA gene positive Breast cancer Insomnia H/O malignant neoplasm of breast Hypercalcemia Mixed hyperlipidemia Vitamin deficiency, unspecified Surgical History Surgical History H/O: hysterectomy H/O mastectomy (~2014) Family History Family History Other Family history of coronary artery disease Social History Social History Smoking status: Former smoker Tobacco type: cigarettes Second hand tobacco smoke exposure: No Smoking end date: 07/20/14 Alcohol intake: current Drinks per week: 4 Substance use: never Substance use type: does not use Lack of Transportation: No Lack of Food: Never True Current Housing: I Have Housing Concerned About Future Housing: No Difficulty Paying Gas/Electric Bills: No Difficulty Paying for Meds: No Currently Unemployed: No Education: High School Diploma/GED Difficulty w/ Childcare or Family Care: No Living arrangements: with family Gender identity (if verbalized by the patient): Female Spiritual care concerns: No Agree to blood products: Yes Comments At the time of my signature I agree with nursing past medical history, surgical, social, and family history. There is no relevant family history pertinent to the presenting complaint. Exam Narrative: GENERAL: Well-appearing, well-nourished, and in no acute distress. HEAD: Normocephalic, atraumatic. EYES: PERRLA and EOMI. ENT: Nares clear, no rhinorrhea or epistaxis. Mucous membranes moist. posterior pharynx with slight erythema but no tonsillar enlargement, no exudates or lesions present. Bilateral TMs are clear with no erythema or foreign bodies the canal. NECK: Supple. No lymphadenopathy CHEST: Clear to auscultation. No respiratory distress. HEART: Regular rate and rhythm. No murmur heard. Normal peripheral pulses. ABDOMEN: Soft, nontender, nondistended, normal active bowel sounds. EXTREMITIES: Normal range of motion. No edema. SKIN: Warm, dry, no rash. NEURO: No focal deficits. Alert and oriented x3. Course Course Level of Care: Express Care Visit Vital Signs Vital signs: Vital Signs Temperature 36.2 C L 12/24/24 13:52 Pulse Rate 79 12/24/24 13:52 Respiratory Rate 16 12/24/24 13:52 Blood Pressure 103/56 L 12/24/24 13:52 Pulse Oximetry 98 12/24/24 13:52 Oxygen Delivery Room Air 12/24/24 13:52 Temperature 36.2 C L 12/24/24 13:52 Pulse Rate 79 12/24/24 13:52 Respiratory Rate 16 12/24/24 13:52 Blood Pressure 103/56 L 12/24/24 13:52 Pulse Oximetry 98 12/24/24 13:52 Oxygen Delivery Room Air 12/24/24 13:52 Vital signs reviewed. Medical Decision Making MDM Narrative Medical decision making narrative: Discussed with patient she has tested positive on point of care testing for strep today. We will discharge her home with oral antibiotics for the strep infection. Discussed with patient that if she continues to have worsening symptoms she can either come back here for re-evaluation or follow up with her primary doctor. Patient verbalized understanding denies any other questions or concerns at this time. Differential Diagnosis Differential Diagnosis: Differential diagnosis: Viral pharyngitis, pharyngitis, group A strep, infectious mononucleosis, gonococcal pharyngitis, exudative pharyngitis, oral candidiasis. Chronic allergies, postnasal drip, GERD, abscess formation, but glottitis, retropharyngeal abscess formation, or airway obstruction. Vital Signs Vital Signs: Vital Signs Temperature 36.2 C L 12/24/24 13:52 Pulse Rate 79 12/24/24 13:52 Respiratory Rate 16 12/24/24 13:52 Blood Pressure 103/56 L 12/24/24 13:52 Pulse Oximetry 98 12/24/24 13:52 Oxygen Delivery Room Air 12/24/24 13:52 Temperature 36.2 C L 12/24/24 13:52 Pulse Rate 79 12/24/24 13:52 Respiratory Rate 16 12/24/24 13:52 Blood Pressure 103/56 L 12/24/24 13:52 Pulse Oximetry 98 12/24/24 13:52 Oxygen Delivery Room Air 12/24/24 13:52 Lab Data Labs: Lab Results 12/24/24 Range/Units 14:01 POC Grp A Strep Screen Positive (Negative) Critical Care Time Critical Care Time Critical Care Time: No Discharge Plan Discharge Clinical Impression: Strep pharyngitis Patient Disposition: Home Condition: Stable Instructions: Antibiotic Form, Strep Throat (ED) Additional Instructions: -Take the medication as prescribed. Throw away the toothbrush after 24hours of antibiotic. -Eat things that are easy to swallow, like tea or soup, or popsicles to suck on. You might not feel like eating or drinking, but it's important that you get enough liquids. -Oral rinses such as: Salt water gargles and/or may use topical anesthetic (eg. Chloraseptic spray) or lozenges to relieve dryness or throat pain). -Take Tylenol and ibuprofen as needed for pain and fever as directed. -Frequent hand washing or hand business department chair is one of the best ways to prevent spread of infection. -Follow up with primary care provider in 2-3 days if condition is not improving or seek ER visit if you start breathing fast/has trouble breathing, is not drinking enough fluids, muffle voice, difficulty opening the mouth. Patient Language: [place] Islander Prescriptions: New amoxicillin 500 mg capsule 500 mg PO Q12H 10 Days Qty: 20 0RF No Action clobetasol 0.05 % cream TOPICAL meclizine 12.5 mg tablet simvastatin 40 mg tablet 40 mg PO DAILY Qty: 90 2RF gabapentin 600 mg tablet 300 mg PO BID Qty: 90 1RF zolpidem 10 mg tablet 10 mg PO HS Qty: 90 0RF Follow-up/Referrals: Aylin Perdomo MD [Primary Care Provider] - Time of Disposition: 14:07
[2024-12-24 13:52] VITALS: BP 103/56; PULSE 79; RESP 16; TEMP 36.2; O2SAT 98
[2024-12-24 14:04] LABS: EDSTREPNEGPOS1 Positive (Negative)
== END 2024-12-24 14:10 | disposition home or self-care (01) ==
PROVIDERS: Emergency Provider Nurse Practitioner Family; PCP Family Medicine
DX: J02.0 Streptococcal pharyngitis (principal); E78.2 Mixed hyperlipidemia; G62.9 Polyneuropathy, unspecified; Z87.891 Personal history of nicotine dependence; Z85.3 Personal history of malignant neoplasm of breast; Z90.10 Acquired absence of unspecified breast and nipple
CPT/HCPCS: 87880; 99213; G0463

== ENCOUNTER 2025-03-11 13:57 | Emergency (ER) | payer OTHER, SELFPAY ==
--- NOTE | ~2025-03-11 | XR_ITS ---
XR foot LT min 3V 03/11/2025 14:13 INDICATION: Left foot swelling and pain PROCEDURE: 4 views left foot COMPARISON: 01/03/2022 FINDINGS: Fracture, dislocation or subluxation is not identified. The soft tissues appear within normal limits. No foreign bodies are identified. IMPRESSION: 1: NO ACUTE BONE OR JOINT ABNORMALITY IDENTIFIED. Reviewed, dictated and finalized at location O.
--- NOTE | 2025-03-11 13:58 | ED.LOWEXIN ---
HPI - Extremity Injury (Lower) General Chief Complaint: Extremity Problem,Nontraumatic Stated Complaint: LT Foot Pain Time Seen by Provider: 03/11/25 13:57 Source: patient Mode of arrival: ambulatory Limitations: no limitations History of Present Illness HPI Narrative: Patricia is a 69 year old female patient presenting to the clinic today with c/o left foot pain. She reports pain and swelling to the top of her left dorsal foot. No known injury. 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 Noticed the swelling when she got home from work today and took her shoe off. Has a history neuropathy. No diabetes. States that there is some sharp shooting pain at times. Currently rates the pain 09/26. Has not taken any medications for her symptoms. Related Data Home Medications ?Medication ?Instructions ?Recorded ?Confirmed ?Last Taken ?Type clobetasol 0.05 % topical cream topical 08/06/23 03/06/25 Unknown History meclizine 12.5 mg tablet mg 08/06/23 03/06/25 Unknown History Allergies Allergy/AdvReac Type Severity Reaction Status Date / Time metronidazole Allergy Intermediate Rash Verified 03/11/25 14:00 Sulfa (Sulfonamide Allergy Intermediate Rash Verified 03/11/25 14:00 Antibiotics) Review of Systems Review of Systems: Pertinent positives per HPI. Patient denies any fever, chills, rash, headache, visual changes, dizziness, cough, runny nose, sore throat, shortness of breath, chest pain, palpitations, nausea, vomiting, diarrhea, constipation, abdominal pain, or any urinary issues. [facility] Past Medical History Medical History Suspected 2019-nCoV infection Neuropathy Vertigo BRCA gene positive Breast cancer Insomnia H/O malignant neoplasm of breast Hypercalcemia Mixed hyperlipidemia Vitamin deficiency, unspecified Surgical History Surgical History H/O: hysterectomy H/O mastectomy (~2014) Family History Family History Other Family history of coronary artery disease Social History Social History Smoking status: Former smoker Tobacco type: cigarettes Second hand tobacco smoke exposure: No Smoking end date: 07/20/14 Alcohol intake: current Drinks per week: 4 Substance use: never Substance use type: does not use Lack of Transportation: No Lack of Food: Never True Current Housing: I Have Housing Concerned About Future Housing: No Difficulty Paying Gas/Electric Bills: No Difficulty Paying for Meds: No Currently Unemployed: No Education: High School Diploma/GED Difficulty w/ Childcare or Family Care: No Living arrangements: with family Gender identity (if verbalized by the patient): Female Spiritual care concerns: No Agree to blood products: Yes Comments At the time of my signature, I reviewed and agree with the nursing past medical, surgical, social, and family history. There is no relevant family history pertinent to the patient complaint. Exam Narrative: General: Well-developed, well nourished, in no apparent distress Head: Normocephalic, atraumatic. Cardio: Regular rate and rhythm, s1 and s2 normal, no murmur appreciated. Resp: Clear to auscultation bilaterally, no rhonchi, rales, wheezing or rubs. Musculoskeletal: No deformity, swelling to the dorsal foot with tenderness to palpation, grossly normal range of motion, muscle strength strong and equal, peripheral pulse strong, no edema, no cyanosis, normal gait and station Course Course Emergency Course: Portions of this record may have been created with voice recognition software. Level of Care: Express Care Visit Vital Signs Vital signs: Vital Signs Temperature 36.3 C L 03/11/25 14:03 Pulse Rate 68 03/11/25 14:03 Respiratory Rate 18 03/11/25 14:03 Blood Pressure 120/52 L 03/11/25 14:03 Pulse Oximetry 99 03/11/25 14:03 Oxygen Delivery Room Air 03/11/25 14:03 Temperature 36.3 C L 03/11/25 14:03 Pulse Rate 68 03/11/25 14:03 Respiratory Rate 18 03/11/25 14:03 Blood Pressure 120/52 L 03/11/25 14:03 Pulse Oximetry 99 03/11/25 14:03 Oxygen Delivery Room Air 03/11/25 14:03 Vital signs reviewed MDM - Extremity Injury (Lower) MDM Narrative Medical decision making narrative: At the time of visit patient is resting comfortably on the exam table. Patient appears to be nontoxic. C/o left foot pain. She reports pain and swelling to the top of her left dorsal foot. No known injury. 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 Noticed the swelling when she got home from work today and took her shoe off. Has a history neuropathy. No diabetes. States that there is some sharp shooting pain at times. Currently rates the pain 3/10. Has not taken any medications for her symptoms. On exam patient has swelling to the top of the dorsal foot with mild tenderness to palpation. Pedal pulse palpable and strong. X-ray of the left foot was ordered. Diagnostics: X-ray of the left foot was performed and negative in the clinic today. Plan: I suspect patient has acute foot pain with swelling. Prescription for naproxen was sent to the pharmacy. Supportive measures were discussed with the patient and they voiced understanding discharge instructions and agrees to treatment plan. Return precautions reviewed Differential Diagnosis Differential diagnosis: Likely other (Osteoarthritis, rheumatoid arthritis, foot sprain, stress fracture, soft tissue swelling, contusion) Discharge Plan Discharge Clinical Impression: Foot pain, left Patient Disposition: Home Condition: Stable Instructions: Antibiotic Form, Foot Sprain (ED) Additional Instructions: X-rays negative for any sign of fracture or malalignment of the left foot Rest, ice, elevate, and wear marques wrap as directed. May take naproxen as prescribed Follow up with your PCP if symptoms persist more than 1 week. Patient Language: Japanese Prescriptions: New naproxen 500 mg tablet 500 mg PO BID PRN (Reason: pain) 7 Days Qty: 14 0RF No Action clobetasol 0.05 % cream TOPICAL meclizine 12.5 mg tablet simvastatin 40 mg tablet 40 mg PO DAILY Qty: 90 2RF gabapentin 600 mg tablet 300 mg PO BID Qty: 90 1RF zolpidem 10 mg tablet 10 mg PO HS Qty: 90 0RF scopolamine base 1 mg over 3 days patch 3 day 1 patch transdermal Q3D PRN (Reason: motion sickness) Qty: 4 0RF Follow-up/Referrals: Aylin Perdomo MD [Primary Care Provider, Family Practice] Time of Disposition: 14:23 Quality NIHSS Nursing Documentation ED NIHSS nursing documentation: reviewed/agree
--- OUTSIDE RECORDS SUMMARY | 2025-03-11 13:59 | XMS_ITS | Clinical Summary ---
Author Organization [facility] Address [address] [place] [address] Care Team Providers Care Hypo Dipper Name Role Phone Unavailable Primary Care Provider Unavailabl e Social History Tobacco Use Types Packs/Day Years Used Date Smoking Tobacco: Never Assessed Comments Unknown Sex and Gender Information Value Date Recorded Sex Assigned at Not on file Legal Sex Female 8:13 PM CDT Gender Identity Not on file Sexual Orientation Not on file Last Filed Vital Signs Vital Sign Reading Time Taken Comments Blood Pressure 120/60 05/22/2012 5:28 PM CDT Pulse 97 05/22/2012 5:28 PM CDT Temperature - - Respiratory Rate - - Oxygen Saturation - - Inhaled Oxygen Concentration - - Weight 70.8 kg (156 lb) 05/22/2012 5:28 PM CDT Height 157.5 cm (5' 2) 05/22/2012 5:28 PM CDT Body Mass Index 28.53 05/22/2012 5:28 PM CDT Plan of Treatment Health Maintenance Due Date Last Done Comments Colorectal Cancer Screening Colonoscopy (10 Years) 1957 Hepatitis C 1975 DTaP, Tdap and Td Vaccines ( 1 - Tdap) 1976 Mammogram Screening 1997 Pneumococcal Vaccine: 50+ Ye ars (1 of 1 - PCV) 2007 Zoster Vaccines (1 of 2) 2007 Dexa Scan (General) 2022 COVID-19 Vaccine (1 - 2023-2 5 season) 2024 RSV Immunization or 60+ Years (1 - 1-dose 75+ series) 2032 Meningococcal B Vaccine Aged Out No l onger eligible based on patient's age to complete this topic Meningococcal Vaccine Aged Out No jose marii eligible based on patient's age to complete this topic RSV Immunizations Under 20 Months Aged Out No longer eligible based on patient's age to complete this topic
--- OUTSIDE RECORDS SUMMARY | 2025-03-11 13:59 | XMS_ITS | Encounter Summary ---
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 Gender Identity Not on file Sexual Orientation [...] on filedocumented in this encounter Care Teams Belt Sewer Relationship Specialty Start Date End Date Aylin Perdomo MD PCP - General 09/05/16 Kirti Diaz NP Nurse Practitioner Medical Oncology 01/21/18 Parveen Jain MD [address] [place] [address] Referring Physician Plastic Surgery 01/21/18 Tim Maldonado MD [address] [place] [address] Consulting Physician Gynecologic Oncology 01/21/18 Diogenes Cote MD [address] [place] [address] Referring Physician Gastroenterology 01/22/18 documented as of this encounter
--- OUTSIDE RECORDS SUMMARY | 2025-03-11 13:59 | XMS_ITS | Clinical Summary ---
Author Organization [facility] Address [address] [place] [address] Care Team Providers Care Market Research Manager Name Role Phone Aylin Perdomo MD Primary Care Provider [phone] Kirti Diaz NP Unavailable [phone] Parveen Jain MD Unavailable [phone] Tim Maldonado MD Unavailable [phone] Diogenes Cote MD Unavailable Allergies Active Allergy [...] (08/03/2020): Added automatically from request for surgery [id number] Balance problem 02/04/2019 Smoking greater than 40 pack years 07/23/2018 Pulmonary nodules 06/05/2016 Overview (01/21/2018): 3 mm node in LLL in subpleural location. 03-16-2017 - imaging unchanged, subsequent imaging recommended. Assessment & Plan (07/23/2018 4:26 PM SALES AND PRODUCTION MANAGER): CT 01/22/2018 with stable (3 mm) subpleural LLL nodule. Will enroll with lung screening program due to prior smoking history and will arrange for low dose CT scan in 6 months. 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 S/P breast reconstruction 12/22/2014 Overview (07/22/2018): Bilateral nipple sparing mastectomies, with delayed wound healing on the right side at the inframammary fold incision. Reconstruction was salvaged with thoracodorsal artery fnps flap. Assessment & Plan (07/22/2018 4:15 PM SALES AND PRODUCTION MANAGER): Saw Dr. Jain 05/31/2018 BRCA2 gene mutation positive 11/09/2014 Overview (07/22/2018): BRCA2 mutation 2041A Assessment & Plan (07/22/2018 4:06 PM SALES AND PRODUCTION MANAGER): s/p TAHBSO and followed by Dr. Cote from GI for monitoring for pancreatic cancer. MRI 04/26/2018 with normal impression. History of left breast cancer 11/03/2014 Assessment & Plan (07/22/2018 4:13 PM SALES AND PRODUCTION MANAGER): Left sided invasive ductal carcinoma, [id number], stage IIA, triple negative, s/p left mastectomy and right prophylatic mastectomy followed by adjuvant AC followed by T, now on monitoring. She is doing well with no signs of recurrence. We reviewed exercise and nutrition recommendations. 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 Gender Identity Not on file Sexual Orientation Not on file Obstetrics History Last Filed Vital Signs Vital Sign Reading Time Taken Comments Blood Pressure 126/68 05/26/2024 11:50 AM SALES AND PRODUCTION MANAGER Pulse 67 05/26/2024 11:50 AM SALES AND PRODUCTION MANAGER Temperature 36.1 C (97 F) 05/26/2024 11:25 AM SALES AND PRODUCTION MANAGER Respiratory Rate 22 05/26/2024 11:55 AM SALES AND PRODUCTION MANAGER Oxygen Saturation 99% 05/26/2024 11:50 AM SALES AND PRODUCTION MANAGER Inhaled Oxygen Concentration - - Weight 63.5 kg (140 lb) 05/26/2024 10:24 AM SALES AND PRODUCTION MANAGER Height 157.5 cm (5' 2) 05/26/2024 10:24 AM SALES AND PRODUCTION MANAGER Body Mass Index 25.61 05/26/2024 10:24 AM SALES AND PRODUCTION MANAGER Plan of Treatment Health Maintenance Due Date Last Done Comments Breast Cancer Screening-Mammogram 1955 Depression Screening 1955 Hepatitis C Screening 1955 Osteoporosis Screening-Bone Density Scan 1955 DTaP/Tdap/Td Vaccine (1 - Tdap) 1968 Hepatitis B Screening 1975 Pneumococcal vaccine 65+ (1 of 1 - PCV) 2007 Well Visit 65+ 2022 Covid-19 Vaccine (4 - 2023-2 5 season) 2024 06/06/2021, 10/01/2020, 09/02/2020 Lung Cancer Screening 01/18/2025 01/18/2024 , 01/19/2023, 12/06/2021, Additional history exists Influenza Vaccine (#1) 2025 Fall Risk Assessment 05/26/2025 05/26/2024 Colon [...] CDT Pulmonary nodule COLONOSCOPY 08/07/2022 7:54 AM SALES AND PRODUCTION MANAGER from Last 3 Months or Most Recently [...] by: Shiva Goetz M.D. us Reneajaspal Victor ACCESS REP IMG CT PROCEDURES Final Result * COLONOSCOPY (08/07/2022 7:54 AM SALES AND PRODUCTION MANAGER) Anatomical Region Laterality Modality Other Narrative Procedure Note Diogenes Cote MD - 08/07/2022 7:54 AM CST ENDOSCOPY LAB Patient Name: Patricia Dangelo Procedure Date: 08/07/2022 7:54 AM Date of : 1955 Admit Type: Outpatient Age: 67 Gender: Female Attending MD: Diogenes Cote M.D. Room: [facility] ENDOSCOPY ROOM 04 Note Status: Finalized [...] The scope was passed under direct vision.The [id number] was introduced through the anusand advanced to [...] following this procedure please call my officeat [phone] to speak to my nurses. After hours and evenings please call [phone] andspeak to the GI fellow lead pony rider. Please tell them that Dr. Cote did your procedure and that your wereinstructed to have the fellow call me or the physiciancovering for me to discuss the management of your condition.If you have an urgent problem, [facility] and [facility] [...] Most Recently Relevant to Health Maintenance Insurance [facility] CHOICE PLUS [address] [place] [address] [facility] [place] [id number] MEDICARE Advance Directives For more information, please contact: [phone] * Full Code (Latest Code Status on File) Date Activated Date Inactivated Comments 05/26/2024 10:20 AM 05/26/2024 4:03 PM * Full Code Date Activated Date Inactivated Comments 08/07/2022 6:57 AM 08/07/2022 1:18 PM * Full Code Date Activated Date Inactivated Comments 06/05/2022 8:04 AM 06/05/2022 3:23 PM * Full Code Date Activated Date Inactivated Comments 08/31/2020 7:56 AM 08/31/2020 3:20 PM Care Teams Market Research Manager Relationship Specialty Start Date End Date Aylin Perdomo MD PCP - General 09/05/16 Kirti Diaz NP Nurse Practitioner Medical Oncology 01/21/18 Parveen Jain MD [address] [place] [address] Referring Physician Plastic Surgery 01/21/18 Tim Maldonado MD [address] [place] [address] Consulting Physician Gynecologic Oncology 01/21/18 Diogenes Cote MD [address] [place] [address] Referring Physician Gastroenterology 01/22/18
[2025-03-11 14:03] VITALS: BP 120/52; PULSE 68; RESP 18; TEMP 36.3; O2SAT 99
== END 2025-03-11 14:28 | disposition home or self-care (01) ==
PROVIDERS: Emergency Provider Nurse Practitioner Family; PCP Family Medicine
DX: M79.672 Pain in left foot (principal); E78.2 Mixed hyperlipidemia; Z85.3 Personal history of malignant neoplasm of breast; G62.9 Polyneuropathy, unspecified; Z87.891 Personal history of nicotine dependence
CPT/HCPCS: 73630; 99213; G0463

== ENCOUNTER 2025-03-15 13:36 | Outpatient (CLI) | payer OTHER, SELFPAY ==
--- NOTE | ~2025-03-15 | DEXA_ITS ---
Bone Density Report Name: FIGUEROA MOON Age: 69 Sex: Female Ethnicity: White Date of : 1955 Indication: osteopenia; cancer; hysterectomy; Referring Provider: MONICA, ARTIE Study: Bone densitometry was performed. Exam Date: March 15, 2025 Accession number: [id number] Bone Density: Region BMD T-score Z-score Classification AP Spine(L1-L4) 0.906 -1.3 0.7 Osteopenia Femoral Neck (Left) 0.619 -2.1 -0.4 Osteopenia Total Hip (Left) 0.728 -1.8 -0.4 Osteopenia Femoral Neck (Right) 0.604 -2.2 -0.5 Osteopenia Total Hip (Right) 0.724 -1.8 -0.4 Osteopenia Total Hip Mean 0.726 -1.8 -0.4 Osteopenia World Health Organization criteria for BMD impression classify patients as: Normal (T-score at or above -1.0), Osteopenia (T-score between -1.0 and -2.5), or Osteoporosis (T-score at or below -2.5). 10-year Fracture Risk(1): Major Osteoporotic Fracture 12% Hip Fracture 2.2% Reported Risk Factors: [place] (), Neck BMD=0.604, BMI=27.5 (1) FRAX(R) Version 3.08. Fracture probability calculated for an untreated patient. Fracture probability may be lower if the patient has received treatment. Previous Exams: -- Region Exam Age BMD T-score BMD Change BMD Change Date g/cm2 vs Baseline vs Previous -- AP Spine (L1-L4) 03/15/2025 69 0.906 -1.3 -13.3%* -0.2% 03/06/2023 67 0.908 -1.3 -13.1%* -2.1% 07/07/2017 62 0.928 -1.1 -11.2%* -7.5%* 09/29/2014 59 1.003 -0.4 -4.0%* -4.0%* 04/03/2011 55 1.045 0.0 Total Hip(Left) 03/15/2025 69 0.728 -1.8 -19.1%* -7.0%* 03/06/2023 67 0.783 -1.3 -13.1%* 5.7%* 09/21/2020 65 0.740 -1.7 -17.7%* -4.4%* 07/07/2017 62 0.774 -1.4 -14.0%* -12.7%* 09/29/2014 59 0.887 -0.5 -1.5% -1.5% 04/03/2011 55 0.900 -0.3 Total Hip(Right) 03/15/2025 69 0.724 -1.8 -20.0%* -10.6%* 03/06/2023 67 0.810 -1.1 -10.5%* 6.6%* 09/21/2020 65 0.759 -1.5 -16.1%* -1.7% 07/07/2017 62 0.772 -1.4 -14.7%* -14.6%* 09/29/2014 59 0.904 -0.3 -0.1% -0.1% 04/03/2011 55 0.905 -0.3 -- *Denotes significance at 95% confidence level, LSC for AP Spine = 0.022 g/cm2, LSC for Total Hip = 0.027 g/cm2 Clinical Information Provided by Patient: Has used the following medications: Reclast (i.e. zoledronate), Vitamin D, Calcium Has the following medical conditions: Cancer, Hysterectomy Patient maximum height was 62 Menopause Age: 53 No regular weight bearing exercise Drinks caffeinated beverages Onset of menses at age 16 Number of children 0 Missed period for more than 6 months in a row Impression: The patient has low bone mass, based on the Right Femoral Neck T-score. The patient has an estimated ten-year risk of hip fracture of 2.2% and an estimated ten-year risk of major fracture of 12%, based on the WHO FRAX algorithm. The BMD for the Total Hip(Left) decreased, changing by -7.0% since the last DXA exam. The BMD for the Total Hip(Right) decreased, changing by -10.6% since the last DXA exam. Discussion: BONE DENSITY IS LOW AT ONE OR MORE SKELETAL SITES. This patient's lowest T-score is low at one or more skeletal sites. It meets the World Health Organization's (WHO) criteria for ?low bone mass? (T-score between -1.0 and -2.5). The patient's 10-year risk of fracture as calculated by FRAX is less than the threshold where pharmacological therapy is recommended by the National Osteoporosis Foundation (NOF). However, all treatment decisions require clinical judgment and consideration of individual patient factors, including patient preferences, comorbidities, previous drug use, risk factors not captured in the FRAX model (e.g., frailty, falls, vitamin D deficiency, increased bone turnover, interval significant decline in bone density) and possible under or overestimation of fracture risk by FRAX. The patient should follow a healthful lifestyle (good nutrition with adequate calcium and vitamin D, and appropriate weight-bearing exercise). Follow-Up: Consider repeating this study in 2 years to reassess this patient's status, or sooner if there is some new clinical indication. Reported by: LIZETH on 03/15/2025 2:05:00 PM. Reviewed, dictated and finalized at location A.
== END 2025-03-15 13:37 | disposition home or self-care (01) ==
LOC: MICIMG 13:37
PROVIDERS: PCP Family Medicine; Visit Provider Nurse Practitioner
DX: Z78.0 Asymptomatic menopausal state (principal); M85.88 Other specified disorders of bone density and structure, other site; M85.852 Other specified disorders of bone density and structure, left thigh; M85.851 Other specified disorders of bone density and structure, right thigh
CPT/HCPCS: 77080

== ENCOUNTER 2025-04-17 12:55 | Outpatient (CLI) | payer OTHER, SELFPAY ==
--- NOTE | 2025-04-17 12:59 | ECHO_ITS ---
Patient Info Name: Patricia Dangelo Age: 69 years : 1955 Gender: Female Ht: 62 in Wt: 145 lbs BSA: 1.71 m2 HR: 75 bpm BP: 137 / 86 mmHg Technical Quality: Fair Exam Date: 04/17/2025 1:11 PM Patient Status: O Admit Date: 04/17/2025 Exam Type: CA echo doppler color flow Complete two-dimensional, color flow and Doppler transthoracic echocardiogram is performed. Tumbler Machine Operator Helper: Sloane Rich Attending Provider: Denae Frye Summary 1. Complete two-dimensional, color flow and Doppler transthoracic echocardiogram is performed. 2. Left ventricular chamber dimension is normal. 3. Left ventricular systolic function is normal, estimated at 60-65. 4. The left ventricular diastolic function is grade I diastolic dysfunction. 5. E/e' 11 is mildly elevated. 6. There is mild aortic valve sclerosis. 7. No pulmonary hypertension, estimated pulmonary arterial systolic pressure is 32 mmHg. 8. There is trivial pericardial effusion. Left Ventricle E/e' 11 is mildly elevated. Left ventricular chamber dimension is normal. Left ventricular systolic function is normal, estimated at 60-65. The left ventricular diastolic function is grade I diastolic dysfunction. Right Ventricle Right ventricular chamber dimension is normal. Right ventricular systolic function is normal and with normal TAPSE 2.2 cm. Left Atria Left atrial chamber dimension is normal. Right Atria Right atrial chamber dimension is normal. Aortic Valve The aortic valve is trileaflet. There is mild aortic valve sclerosis. There is no aortic valve stenosis. There is no aortic valve regurgitation. Pulmonic Valve There is no pulmonic regurgitation. Mitral Valve There is no mitral valve stenosis. There is no mitral valve regurgitation. Tricuspid Valve There is no tricuspid valve regurgitation. No pulmonary hypertension, estimated pulmonary arterial systolic pressure is 32 mmHg. Pericardium/Pleural There is trivial pericardial effusion. Inferior Vena Cava Normal inferior vena cava with >50% collapse upon inspiration consistent with normal right atrial pressure, 5 mmHg. Aorta The aortic root size at the sinus of Valsalva is normal. Left Ventricular Outflow Tract Name Value Normal LVOT 2D LVOT Diameter 1.7 cm LVOT Doppler LVOT Peak Velocity 94 cm/s LVOT Peak Gradient 4 mmHg LVOT Mean Gradient 2 mmHg LVOT VTI 23 cm LVOT VTI/AV VTI Ratio 0.8 LVOT Stroke Volume 55 ml LVOT CO 3.9 l/min LVOT CI 2.3 l/min/m2 Pulmonic Valve Name Value Normal RVOT Doppler RVOT Peak Velocity 72 cm/s RVOT Peak Gradient 2 mmHg PV Doppler PV Peak Velocity 79 cm/s PV Peak Gradient 2 mmHg Mitral Valve Name Value Normal MV Diastolic Function MV E Peak Velocity 82 cm/s MV A Peak Velocity 85 cm/s MV E/A 1.0 MV Decel Time (PW) 187 ms Tricuspid Valve Name Value Normal TV Regurgitation Doppler TR Peak Velocity 259 cm/s TR Peak Gradient 27 mmHg Estimated PAP/RSVP RA Pressure 5 mmHg <=5 PA Systolic Pressure 32 mmHg <36 RV Systolic Pressure 32 mmHg <36 TV Annular TDI TV Lateral Elvia s' Velocity 9.6 cm/s >=9.5 Aorta Name Value Normal Ascending Aorta Ao Root Diameter (MM) 2.4 cm Ao Root Diam Index (MM) 1.4 cm/m2 Aortic Valve Name Value Normal AV Doppler AV Peak Velocity 121 cm/s AV Peak Gradient 6 mmHg AV Mean Gradient 4 mmHg AV VTI 30 cm AV Area (Cont Eq VTI) 1.8 cm2 >=3.0 AV Area (Cont Eq Tin) 1.8 cm2 AV DI (Tin) 0.78 AV Regurgitation 2D LVOT Area 2.4 cm2 Ventricles Name Value Normal LV Dimensions 2D/MM IVS Diastolic Thickness (2D) 0.6 cm 0.6-1.0 IVS Diastole Thickness (MM) 0.9 cm 0.6-0.9 LVID Diastole (2D) 4.2 cm 3.8-5.2 LVID Diastole (MM) 4.2 cm 3.8-5.2 LVIW Diastolic Thickness (2D) 1.1 cm 0.6-0.9 LVIW Diastolic Thickness (MM) 0.8 cm 0.6-0.9 LVID Systole (2D) 2.5 cm 2.2-3.5 LVID Systole (MM) 2.4 cm 2.2-3.5 LVOT Diameter 1.7 cm LV Mass (2D Cubed) 115.32 g 67.00-162.00 LV Mass Index (2D Cubed) 67 g/m2 43-95 Relative Wall Thickness (2D) 0.53 <=0.42 LV Mass (MM Cubed) 109.06 g 67.00-162.00 LV Mass Index (MM Cubed) 64 g/m2 43-95 Relative Wall Thickness (MM) 0.39 LV Fractional Shortening/Ejection Fraction 2D/MM LV Fractional Shortening (2D) 41 % 27-45 LV Fractional Shortening (MM) 43 % 27-45 LV EF (MM Teichholz) 75 % LV EF (2D Teichholz) 73 % LV Diastolic Volume (4C MOD) 47 ml LV EF (4C MOD) 62 % LV Diastolic Volume (2C MOD) 57 ml LV EF (2C MOD) 68 % LV Diastolic Volume (BP MOD) 53 ml 46-106 LV Diastolic Volume Index (BP MOD) 31 ml/m2 29-61 LV Systolic Volume (BP MOD) 18 ml 14-42 LV Systolic Volume Index (BP MOD) 11 ml/m2 8-24 LV EF (BP MOD) 66 % 54-74 LV Diastolic Length (4C) 7.1 cm LV Systolic Length (4C) 6.0 cm LV Stroke Volume (4C MOD) 30 ml Atria Name Value Normal LA Dimensions LA Dimension (MM) 3.6 cm 2.7-3.8 LA Volume (4C A-L) 22 ml LA Volume (BP A-L) 25 ml RA Dimensions RA Systolic Major Ryde Length (4C) 3.8 cm 2.2-2.8 RA Area (4C) 9.6 cm2 <=18.0 Report Signatures
--- OUTSIDE RECORDS SUMMARY | 2025-04-17 13:08 | XMS_ITS | Clinical Summary ---
Author Organization [facility] Address [address] [place] [address] Care Team Providers Care Blood Bank Technologist Name Role Phone Unavailable Primary Care Provider [...] COVID-19 Vaccine (1 - 2023-2 5 season) 2025 RSV Immunization or 60+ Years (1 - [...]
== END 2025-04-17 12:56 | disposition home or self-care (01) ==
PROVIDERS: PCP Family Medicine; Visit Provider Student in an Organized Health Care Education/Training Program
DX: R01.1 Cardiac murmur, unspecified (principal); I35.0 Nonrheumatic aortic (valve) stenosis
CPT/HCPCS: 93306